=== PATIENT | female | born 1975 | race Caucasian/White ===

== ENCOUNTER 2020-11-25 22:42 | Emergency (ER) | payer OTHER ==
--- NOTE | 2020-11-25 23:47 | EDM.PDOC ---
ED HPI GENERAL MEDICAL PROBLEM - General Chief Complaint: Chest Pain Stated Complaint: SOB/CHEST PAIN 168/88 BP Time Seen by Provider: 11/25/20 23:19 Source of Information: Reports: Patient History Limitations: Reports: No Limitations - History of Present Illness INITIAL COMMENTS - FREE TEXT/NARRATIVE: Mrs. Greenberg is a very pleasant 45-year-old woman who now presents the ED s tating that she has been experiencing the sensation of her heart skipping a beat, dyspnea, and anxiety, on and off since 11/22/2020. The skipped beat sensation occurs about every 20 minutes, but only during the day, not at night. No associated nausea or diaphoresis. She reports having similar palpitation symptoms since she was 19 years old, but has never previously sought medical evaluation for it. She states that she took her blood pressure at home, finding her systolic BP to be in the 160s. The patient reports that she drinks 2 cups of coffee per day, but no other caffeinated beverages. She reports having numerous stressors in her life, and also reports that the last time that she experienced these palpitations, she was also under considerable stress. Here in the ED, the patient's initial BP is found to be elevated at 168/100, otherwise, she is hemodynamically stable, afebrile, saturating 99% on room air. She appears to be somewhat anxious, but is in no acute distress. Prior to Friday, the patient denies having a recent fever, chills, sore throat, ear pain, nasal or sinus congestion, cough, dyspnea, chest pain, palpitations, nausea, vomiting, constipation, diarrhea, abdominal pain, urinary symptoms, recent weight gain or weight loss, recent bloody bowel movements or black bowel movements, recent joint aches, headaches, or rashes. The patient does not have a PCP. Her Scourer is Dr. Sylvie Unger. - Related Data Allergies Allergy/AdvReac Type Severity Reaction Status Date / Time No Known Allergies Allergy Verified 11/25/20 22:53 Home Meds: Home Meds Multivitamin 1 each PO DAILY 11/25/20 [History] Non-Formulary Medication [NF Drug] 1 tab PO DAILY 11/25/20 [History] Past Medical History Psychiatric History: Reports: Anxiety (untreated) - Past Surgical History HEENT Surgical History: Reports: Oral Surgery (dental extractions) Female Surgical History: Reports: LEEP Social & Family History - Tobacco Use Tobacco Use Status *Q: Former Tobacco User Years of Tobacco use: 25 Packs/Tins Daily: 1 Month/Year Tobacco Last Used: Quit 2017 Tobacco Use Comment: Started smoking 1992 - Caffeine Use Caffeine Use: Reports: Coffee - Alcohol Use Alcohol Use History: No - Recreational Drug Use Recreational Drug Use: Yes Drug Use in Last 12 Months: No Recreational Drug Type: Reports: Marijuana/Hashish (last smoked 2009) - Living Situation & Occupation Living situation: Reports: , with Spouse, with Family (3 kids) Occupation: Employed ([employer]) ED ROS GENERAL - Review of Systems Review Of Systems: Comprehensive ROS is negative, except as noted in HPI. ED EXAM, GENERAL - Physical Exam Exam: See Below Exam Limited By: No Limitations General Appearance: Alert, WD/WN, No Apparent Distress Eye Exam: Bilateral Eye: EOMI, Normal Inspection Ears: Normal External Exam, Hearing Grossly Normal Nose: Normal Inspection Throat/Mouth: Normal Inspection, Normal Lips, Normal Voice, No Airway Compromise Head: Atraumatic, Normocephalic Neck: Normal Inspection, Full Range of Motion Respiratory/Chest: No Respiratory Distress, Lungs Clear, Normal Breath Sounds, No Accessory Muscle Use, Chest Non-Tender Cardiovascular: Normal Peripheral Pulses, Regular Rate, Rhythm, No Edema, No Gal lop, No JVD, No Murmur, No Rub Peripheral Pulses: 3+: Radial (L), Radial (R) GI/Abdominal: Normal Bowel Sounds, Soft, Non-Tender, No Organomegaly, No Distention, No Abnormal Bruit, No Mass Back Exam: Normal Inspection, Full Range of Motion, NT Extremities: Normal Inspection, Normal Range of Motion, No Pedal Edema, Normal Capillary Refill Neurological: Alert, Oriented, Normal Cognition, No Motor/Sensory Deficits Psychiatric: Anxious Skin Exam: Warm, Dry, Intact, Normal Color, No Rash #1 Interpretation EKG Date: 11/25/20 Time: 22:51 Rhythm: NSR Rate (Beats/Min): 81 [place]: Normal P-Wave: Present QRS: Normal ST-T: Normal QT: Normal Comparison: NA - No Prior EKG Course - Vital Signs Last Recorded V/S: Last Vital Signs Temp 36.2 C 11/25/20 22:48 Pulse 93 11/25/20 22:48 Resp 18 11/25/20 22:48 BP 168/100 H 11/25/20 22:48 Pulse Ox 99 11/25/20 22:48 - Orders/Labs/Meds Orders: Active Orders 24 hr Category Date Time Status EKG 12 Lead [EKG Documentation Completion] [RC] ROUTINE Care 11/25/20 22:56 Active Labs: Laboratory Tests 11/25/20 11/25/20 Range/Units 22:50 22:50 WBC 8.86 (3.98-10.04) K/mm3 RBC 4.56 (3.98-5.22) M/mm3 Hgb 13.8 (11.2-15.7) gm/dl Hct 41.7 (34.1-44.9) % MCV 91.4 (79.4-94.8) fl MCH 30.3 (25.6-32.2) pg MCHC 33.1 (32.2-35.5) g/dl RDW Std Deviation 42.9 (36.4-46.3) fL Plt Count 296 (182-369) K/mm3 MPV 11.2 (9.4-12.3) fl Neutrophils % (Manual) 41 (40-60) % Band Neutrophils % 0 (0-10) % Lymphocytes % (Manual) 50 H (20-40) % Atypical Lymphs % 0 % Monocytes % (Manual) 7 (2-10) % Eosinophils % (Manual) 2 (0.7-5.8) % Basophils % (Manual) 0 L (0.1-1.2) Platelet Estimate Adequate RBC Morph Comment Normal Sodium 140 (136-145) mEq/L Potassium 3.5 (3.5-5.1) mEq/L Chloride 104 (98-107) mEq/L Carbon Dioxide 26 (21-32) mEq/L Anion Gap 13.5 (5-15) BUN 10 (7-18) mg/dL Creatinine 1.0 (0.55-1.02) mg/dL Est Cr Clr Drug Dosing 67.21 mL/min Estimated GFR (MDRD) > 60 (>60) mL/min BUN/Creatinine Ratio 10.0 L (14-18) Glucose 94 (70-99) mg/dL Calcium 8.9 (8.5-10.1) mg/dL Magnesium 2.1 (1.8-2.4) mg/dL Total Bilirubin 0.4 (0.2-1.0) mg/dL AST 15 (15-37) U/L ALT 25 (14-59) U/L Alkaline Phosphatase 102 (46-116) U/L Troponin I < 0.017 (0.00-0.056) ng/mL Total Protein 7.8 (6.4-8.2) g/dl Albumin 4.2 (3.4-5.0) g/dl Globulin 3.6 gm/dL Albumin/Globulin Ratio 1.2 (1-2) TSH 3rd Generation 1.393 (0.358-3.74) uIU/mL - Re-Assessments/Exams Free Text/Narrative Re-Assessment/Exam: 11/25/20 23:40 As above, the patient has been experiencing intermittent palpitations - the sensation of her heart skipping a beat, dyspnea, and anxiety since Friday. She emphasized that she has not experienced any chest pain or discomfort. She reports that she has been experiencing similar palpitations since she was about 19 years of age, but has never undergone a medical evaluation for them. Twice during my evaluation the patient experienced the sensation of a skipped beat, feeling it under her right breast, however, her director instructional material indicated a steady normal sinus rhythm. Her ECG, obtained at triage, demonstrates a normal sinus rhythm at 81 bpm with no ischemic changes. I recommended that we check some blood work to make sure that she is not overly anemic, that there are not any significant electrolyte abnormalities that might need to be corrected, as well as a TSH to make sure that she is not hyperthyroid. The patient agreed. 11/26/20 00:43 The patient's CBC is unremarkable. Her CMP is unremarkable. Her magnesium level is within normal and is at 2.1. Her TSH is within normal limits at 1.393. Her troponin is undetectably low. 11/26/20 00:46 Test results discussed with the patient. As above, today's work-up is completely normal. I suspect that the patient's palpitations are related to anxiety, although it is possible that she is experiencing muscle fasciculations. I will refer her to the clinic so that she can establish a PCP, and at that time, they can discuss the option of a Holter monitor versus event monitor. Departure - Departure Time of Disposition: 00:46 Disposition: Home, Self-Care 01 Condition: Good Clinical Impression: Palpitations, Dyspnea, Anxiety - Discharge Information *PRESCRIPTION DRUG MONITORING PROGRAM REVIEWED*: Not Applicable *COPY OF PRESCRIPTION DRUG MONITORING REPORT IN PATIENT PAIGE: Not Applicable Referrals: PCP,None [Primary Care Provider] - Herlinda Ca NP [Nurse Practitioner] - Sylvie Unger MD [Physician] - Forms: ED Department Discharge Additional Instructions: You were seen in the emergency room after experiencing the sensation of a skipping heartbeat, along with shortness of breath and anxiety. Work-up in the ER included numerous blood tests and an ECG. Your entire work-up was unremarkable. 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 The cause of your palpitations is not clear, but they do not appear to be due to a serious medical condition. They are most likely related to anxiety, although could be due to muscle fasciculations. We recommend that you follow-up with Herlinda Ca NP, or one of the other providers in the clinic, to establish a PCP. At that time, you can discuss the option of undergoing a 48-hour or longer live truck technician. If any other problems, please do not hesitate to return to the ER. Sepsis Event Note (ED) - Evaluation Sepsis Screening Result: No Definite Risk - Focused Exam Vital Signs: Vital Signs Temp Pulse Resp BP Pulse Ox 11/25/20 22:48 36.2 C 93 18 168/100 H 99 - My Orders Last 24 Hours: My Active Orders 11/25/20 22:56 EKG 12 Lead [EKG Documentation Completion] [RC] ROUTINE - Assessment/Plan Last 24 Hours: My Active Orders 11/25/20 22:56 EKG 12 Lead [EKG Documentation Completion] [RC] ROUTINE
== END 2020-11-26 01:03 | disposition home or self-care (01) ==
LOC: JD.ED 22:42
DX: F41.9 Anxiety disorder, unspecified (principal); R00.2 Palpitations; R06.02 Shortness of breath; Z87.891 Personal history of nicotine dependence
CPT/HCPCS: 36415; 80053; 83735; 84443; 84484; 85007; 85027; 93005; 93010; 99283; 99285-25